=== PATIENT | female | born 1990 | race American Indian/Alaskan Native ===

== ENCOUNTER 2018-05-10 19:25 | Emergency (ER) | payer OTHER ==
--- NOTE | 2018-05-10 20:23 | EDM.PDOC ---
ED HPI GENERAL MEDICAL PROBLEM - General Chief Complaint: ENT Problem Stated Complaint: SORE THROAT [id number] Time Seen by Provider: 05/10/18 20:16 Source of Information: Reports: Patient History Limitations: Reports: No Limitations - History of Present Illness INITIAL COMMENTS - FREE TEXT/NARRATIVE: sorethraot one week, worse at night, tried OTC shea seltzer and throat lozenges , not helping, cough, non productive, left ear pain tonight Throat Pain Score (Numeric/FACES): 10 - Related Data Allergies Allergy/AdvReac Type Severity Reaction Status Date / Time No Known Allergies Allergy Verified 05/10/18 19:30 Home Meds: Home Meds . [No Known Home Meds] 05/10/18 [History] Past Medical History - Past Health History Medical/Surgical History: Denies Medical/Surgical History Social & Family History - Tobacco Use Smoking Status *Q: Never Smoker Second Hand Smoke Exposure: No - Recreational Drug Use Recreational Drug Use: No ED ROS ENT - Review of Systems Review Of Systems: ROS reveals no pertinent complaints other than HPI. ED EXAM, ENT - Physical Exam Exam: See Below Exam Limited By: No Limitations General Appearance: Alert, Mild Distress Eye Exam: Bilateral Eye: EOMI Ears: Normal External Exam, TM Fluid (bilaterally greater left) Nose: Normal Inspection Mouth/Throat: Pharyngeal Erythema (mild), Uvular Edema. No: Uvular Deviation Head: Atraumatic, Normocephalic Neck: No: Lymphadenopathy (L), Lymphadenopathy (R) Respiratory/Chest: No Respiratory Distress, Lungs Clear, Respiratory Distress Cardiovascular: Normal Peripheral Pulses, Regular Rate, Rhythm Extremities: Normal Inspection, Normal Range of Motion Neurological: Alert, Oriented, Normal Cognition Psychiatric: Normal Affect, Normal Mood Skin: Warm, Dry, Intact, Normal Color Course - Vital Signs Last Recorded V/S: Last Vital Signs Temp 98.8 F 05/10/18 19:27 Pulse 106 H 05/10/18 19:27 Resp 18 05/10/18 19:27 BP 121/79 05/10/18 19:27 Pulse Ox 97 05/10/18 19:27 - Orders/Labs/Meds Orders: Active Orders 24 hr Category Date Time Status CULTURE STREP A CONFIRMATION [RM] Stat Lab 05/10/18 19:32 Results STREP SCRN A RAPID W CULT CONF [RM] Stat Lab 05/10/18 19:32 Results Departure - Departure Time of Disposition: 20:24 Disposition: Home, Self-Care 01 Condition: Good Clinical Impression: Pharyngitis Qualifiers: Pharyngitis/tonsillitis etiology: unspecified etiology Qualified Code(s): J02.9 - Acute pharyngitis, unspecified - Discharge Information Instructions: Sore Throat, [id number] Forms: ED Department Discharge Additional Instructions: increase fluid chloraseptic throat sray alternate tylenol and ibuprofen for discomfort humidification follow up as needed - My Orders Last 24 Hours: My Active Orders 05/10/18 19:32 CULTURE STREP A CONFIRMATION [RM] Stat STREP SCRN A RAPID W CULT CONF [] Stat - Assessment/Plan Last 24 Hours: My Active Orders 05/10/18 19:32 CULTURE STREP A CONFIRMATION [RM] Stat STREP SCRN A RAPID W CULT CONF [] Stat
== END 2018-05-10 20:29 | disposition home or self-care (01) ==
LOC: DL.ED 19:25
DX: J02.9 Acute pharyngitis, unspecified (principal)
CPT/HCPCS: 87081; 87430; 99283

== ENCOUNTER 2020-11-13 23:21 | Inpatient (IN) | payer BC, OTHER ==
[2020-11-14 00:04] LABS: PTT,PARTIAL THROMBOPLSTIN TIME 23.3 SEC (22.0-34.0)
[2020-11-14 00:06] LABS: ANION GAP 17.5 mEq/L (7-13); CHLORIDE,CL 102 mmol/L (98-107); SODIUM,NA 138 mmol/L (136-145)
--- NOTE | 2020-11-14 00:48 | US ---
PROCEDURE INFORMATION: Exam: US After First Trimester, Transabdominal. Additional Gestation Exam date and time: 11/14/2020 12:21 AM Age: 30 years old Clinical indication: Lmp or gestational age (in weeks): 19 w 5 d; Other: Bleeding +1 days; ; Additional info: Bleeding during TECHNIQUE: Imaging protocol: Real-time transabdominal obstetrical ultrasound of the maternal pelvis and a second or third trimester with image documentation. Additional Gestation was evaluated. COMPARISON: No relevant prior studies available. FINDINGS: Gestation: Single live intrauterine gestation. heart rate: heart rate 150 bpm. presentation: Breech Placenta: Unremarkable. No subchorionic bleed. Placenta is location. Amniotic fluid index: The AISHWARYA = 3.96 cm. Cervix: Cervix is closed and 6 cm in length. IMPRESSION: Fetus in breech position with a heart rate of 150 bpm. AISHWARYA = 3.96 cm, consistent with oligohydramnios.
[2020-11-14] MEDS ORDERED: Lactated Ringers 1,000 ML IV SCH (01:30)
--- NOTE | 2020-11-14 01:36 | EDM.PDOC ---
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 She is G5, P4, SA1, L3; she follows with [facility] for care. The patient does attest to one episode of vaginal bleeding due to subchorionic bleed at approximately 4 weeks into this , but has not experienced vaginal bleeding since that time. She notes light bleeding began yesterday afternoon, however the bleeding has slowly progressed as she has saturated one pad in the past hour. She denies recent illness, fever, shaking chills, palpitations, nausea, vomiting, dysuria, di arrhea, constipation, abdominal cramping, low back pain, vaginal trauma, or rough intercourse. She denies tobacco, alcohol, or recreational drug use. 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 ED EXAM - Physical Exam Exam: See Below Exam Limited By: No Limitations General Appearance: Alert, No Apparent Distress Eye Exam: Bilateral Eye: EOMI, Normal Inspection, PERRL (3mm) Throat/Mouth: Normal Inspection, Normal Voice, No Airway Compromise Head: Atraumatic, Normocephalic Neck: Normal Inspection, Supple, Non-Tender, Full Range of Motion Respiratory/Chest: No Respiratory Distress, Lungs Clear, Normal Breath Sounds, No Accessory Muscle Use, Chest Non-Tender Cardiovascular: Normal Peripheral Pulses, Regular Rate, Rhythm, No Edema, No Gallop, No JVD, No Murmur, No Rub GI/Abdominal Exam: Soft, Non-Tender, No Distention, No Abnormal Bruit, No Mass, Pelvis Stable, Abnormal Bowel Sounds (Hypoactive bowel sounds) Rectal Exam: Normal Exam, Normal Rectal Tone (Female) Exam: Vaginal Bleeding (Vaginal vault full of blood upon insertion of speculum - cleared with cotton swabs and no active bleeding noted; No vaginal lesions or tears noted), Other (Cervix closed) Heart Tones: Present (Per US, 150 HR) Heart Tones per Min: 150 Movement: Active (Per US) Back Exam: Normal Inspection, Full Range of Motion, Other (No CVA tenderness) Extremities: Normal Inspection, Normal Range of Motion, Non-Tender, Normal Capillary Refill, No Pedal Edema Neurological: Alert, Oriented, CN II-XII Intact, Normal Cognition, Normal Gait, No Motor/Sensory Deficits Psychiatric: Normal Affect, Depressed Mood Skin Exam: Warm, Dry, Intact, Normal Color, No Rash Course - Vital Signs Last Recorded V/S: Last Vital Signs Temp 98.7 F 11/16/20 04:02 Pulse 104 H 11/16/20 04:02 Resp 16 11/16/20 04:02 BP 97/57 L 11/16/20 04:02 Pulse Ox 100 11/16/20 04:02 - Orders/Labs/Meds Labs: Laboratory Tests 11/13/20 11/13/20 11/13/20 Range/Units 01:02 23:39 23:39 WBC 13.5 H (5.0-10.0) 10^3/uL RBC 3.76 L (4.2-5.4) 10^6/uL Hgb 12.4 (12.0-16.0) g/dL Hct 35.8 L (37.0-47.0) % MCV 95.2 (80-100) fL MCH 33.0 (27.0-34.0) pg MCHC 34.6 (33.0-35.0) g/dL Plt Count 288 (150-450) 10^3/uL Neut % (Auto) 65.4 (42.2-75.2) % Lymph % (Auto) 24.4 (20.5-50.1) % [place] % (Auto) 9.3 H (2-8) % Eos % (Auto) 0.7 L (1.0-3.0) % Baso % (Auto) 0.2 (0.0-1.0) % PT 9.5 (9.0-12.0) SEC INR 0.9 (0.9-1.2) APTT 23.3 (22.0-34.0) SEC Sodium (136-145) mmol/L Potassium (3.5-5.1) mmol/L Chloride (98-107) mmol/L Carbon Dioxide (21-32) mmol/L Anion Gap (7-13) mEq/L BUN (7-18) mg/dL Creatinine (0.55-1.02) mg/dL Est Cr Clr Drug Dosing mL/min Estimated GFR (MDRD) BUN/Creatinine Ratio (No establ ref range) Glucose (70-99) mg/dL Lactic Acid (0.4-2.0) mmol/L Calcium (8.5-10.1) mg/dL Total Bilirubin (0.2-1.0) mg/dL AST (15-37) U/L ALT (14-59) U/L Alkaline Phosphatase (46-116) U/L Total Protein (6.4-8.2) g/dL Albumin (3.4-5.0) g/dL Globulin Albumin/Globulin Ratio HCG, Quant (0-6) mIU/mL Urine Color (YELLOW) Urine Appearance (CLEAR) Urine pH (5.0-9.0) Ur Specific [place] (1.005-1.030) Urine Protein (NEGATIVE) Urine Glucose (UA) (NEGATIVE) Urine Ketones (NEGATIVE) Urine Occult Blood (NEGATIVE) Urine Nitrite (NEGATIVE) Urine Bilirubin (NEGATIVE) Urine Urobilinogen (0.2-1.0) mg/dL Ur Leukocyte Esterase (NEGATIVE) Urine RBC /HPF Urine WBC (0-5/HPF) /HPF Ur Epithelial Cells (NOT SEEN) /HPF Urine Bacteria (0-FEW/HPF) /HPF Urine Mucus (NOT SEEN) /LPF Urine Opiates Screen Negative (NEGATIVE) Ur Oxycodone Screen Negative (NEGATIVE) Urine Methadone Screen Negative (NEGATIVE) Ur Barbiturates Screen Negative (NEGATIVE) U Tricyclic Antidepress Negative (NEGATIVE) Ur Phencyclidine Scrn Negative (NEGATIVE) Ur Amphetamine Screen Negative (NEGATIVE) U Methamphetamines Scrn Negative (NEGATIVE) Urine MDMA Screen Negative (NEGATIVE) U Benzodiazepines Scrn Negative (NEGATIVE) Urine Cocaine Screen Negative (NEGATIVE) U Marijuana (THC) Screen Negative (NEGATIVE) Ethyl Alcohol (0) mg/dL HIV-1 Antibody (NONREACTIVE) HIV-2 Antibody (NONREACTIVE) HIV P24 Antigen (NONREACTIVE) Blood Type (Referred) Blood Type Gel Antibody Screen Rhogam Indicated 11/13/20 11/13/20 11/13/20 Range/Units 23:39 23:39 23:39 WBC (5.0-10.0) 10^3/uL RBC (4.2-5.4) 10^6/uL Hgb (12.0-16.0) g/dL Hct (37.0-47.0) % MCV (80-100) fL MCH (27.0-34.0) pg MCHC (33.0-35.0) g/dL Plt Count (150-450) 10^3/uL Neut % (Auto) (42.2-75.2) % Lymph % (Auto) (20.5-50.1) % [place] % (Auto) (2-8) % Eos % (Auto) (1.0-3.0) % Baso % (Auto) (0.0-1.0) % PT (9.0-12.0) SEC INR (0.9-1.2) APTT (22.0-34.0) SEC Sodium 138 (136-145) mmol/L Potassium 3.5 (3.5-5.1) mmol/L Chloride 102 (98-107) mmol/L Carbon Dioxide 22 (21-32) mmol/L Anion Gap 17.5 H (7-13) mEq/L BUN 5 L (7-18) mg/dL Creatinine 0.58 (0.55-1.02) mg/dL Est Cr Clr Drug Dosing 124.70 mL/min Estimated GFR (MDRD) > 60 BUN/Creatinine Ratio 8.6 (No establ ref range) Glucose 73 (70-99) mg/dL Lactic Acid (0.4-2.0) mmol/L Calcium 8.8 (8.5-10.1) mg/dL Total Bilirubin 0.3 (0.2-1.0) mg/dL AST 7 L (15-37) U/L ALT 16 (14-59) U/L Alkaline Phosphatase 53 (46-116) U/L Total Protein 7.2 (6.4-8.2) g/dL Albumin 3.1 L (3.4-5.0) g/dL Globulin 4.1 Albumin/Globulin Ratio 0.76 HCG, Quant 67313 H (0-6) mIU/mL Urine Color (YELLOW) Urine Appearance (CLEAR) Urine pH (5.0-9.0) Ur Specific [place] (1.005-1.030) Urine Protein (NEGATIVE) Urine Glucose (UA) (NEGATIVE) Urine Ketones (NEGATIVE) Urine Occult Blood (NEGATIVE) Urine Nitrite (NEGATIVE) Urine Bilirubin (NEGATIVE) Urine Urobilinogen (0.2-1.0) mg/dL Ur Leukocyte Esterase (NEGATIVE) Urine RBC /HPF Urine WBC (0-5/HPF) /HPF Ur Epithelial Cells (NOT SEEN) /HPF Urine Bacteria (0-FEW/HPF) /HPF Urine Mucus (NOT SEEN) /LPF Urine Opiates Screen (NEGATIVE) Ur Oxycodone Screen (NEGATIVE) Urine Methadone Screen (NEGATIVE) Ur Barbiturates Screen (NEGATIVE) U Tricyclic Antidepress (NEGATIVE) Ur Phencyclidine Scrn (NEGATIVE) Ur Amphetamine Screen (NEGATIVE) U Methamphetamines Scrn (NEGATIVE) Urine MDMA Screen (NEGATIVE) U Benzodiazepines Scrn (NEGATIVE) Urine Cocaine Screen (NEGATIVE) U Marijuana (THC) Screen (NEGATIVE) Ethyl Alcohol < 3 (0) mg/dL HIV-1 Antibody (NONREACTIVE) HIV-2 Antibody (NONREACTIVE) HIV P24 Antigen (NONREACTIVE) Blood Type (Referred) Blood Type A NEGATIVE Gel Antibody Screen Negative Rhogam Indicated 11/13/20 11/13/20 11/13/20 Range/Units 23:39 23:39 23:39 WBC (5.0-10.0) 10^3/uL RBC (4.2-5.4) 10^6/uL Hgb (12.0-16.0) g/dL Hct (37.0-47.0) % MCV (80-100) fL MCH (27.0-34.0) pg MCHC (33.0-35.0) g/dL Plt Count (150-450) 10^3/uL Neut % (Auto) (42.2-75.2) % Lymph % (Auto) (20.5-50.1) % [place] % (Auto) (2-8) % Eos % (Auto) (1.0-3.0) % Baso % (Auto) (0.0-1.0) % PT (9.0-12.0) SEC INR (0.9-1.2) APTT (22.0-34.0) SEC Sodium (136-145) mmol/L Potassium (3.5-5.1) mmol/L Chloride (98-107) mmol/L Carbon Dioxide (21-32) mmol/L Anion Gap (7-13) mEq/L BUN (7-18) mg/dL Creatinine (0.55-1.02) mg/dL Est Cr Clr Drug Dosing mL/min Estimated GFR (MDRD) BUN/Creatinine Ratio (No establ ref range) Glucose (70-99) mg/dL Lactic Acid 0.7 (0.4-2.0) mmol/L Calcium (8.5-10.1) mg/dL Total Bilirubin (0.2-1.0) mg/dL AST (15-37) U/L ALT (14-59) U/L Alkaline Phosphatase (46-116) U/L Total Protein (6.4-8.2) g/dL Albumin (3.4-5.0) g/dL Globulin Albumin/Globulin Ratio HCG, Quant (0-6) mIU/mL Urine Color (YELLOW) Urine Appearance (CLEAR) Urine pH (5.0-9.0) Ur Specific [place] (1.005-1.030) Urine Protein (NEGATIVE) Urine Glucose (UA) (NEGATIVE) Urine Ketones (NEGATIVE) Urine Occult Blood (NEGATIVE) Urine Nitrite (NEGATIVE) Urine Bilirubin (NEGATIVE) Urine Urobilinogen (0.2-1.0) mg/dL Ur Leukocyte Esterase (NEGATIVE) Urine RBC /HPF Urine WBC (0-5/HPF) /HPF Ur Epithelial Cells (NOT SEEN) /HPF Urine Bacteria (0-FEW/HPF) /HPF Urine Mucus (NOT SEEN) /LPF Urine Opiates Screen (NEGATIVE) Ur Oxycodone Screen (NEGATIVE) Urine Methadone Screen (NEGATIVE) Ur Barbiturates Screen (NEGATIVE) U Tricyclic Antidepress (NEGATIVE) Ur Phencyclidine Scrn (NEGATIVE) Ur Amphetamine Screen (NEGATIVE) U Methamphetamines Scrn (NEGATIVE) Urine MDMA Screen (NEGATIVE) U Benzodiazepines Scrn (NEGATIVE) Urine Cocaine Screen (NEGATIVE) U Marijuana (THC) Screen (NEGATIVE) Ethyl Alcohol (0) mg/dL HIV-1 Antibody Non-reactive (NONREACTIVE) HIV-2 Antibody Non-reactive (NONREACTIVE) HIV P24 Antigen Non-reactive (NONREACTIVE) Blood Type (Referred) A neg Blood Type Gel Antibody Screen Rhogam Indicated Yes 11/14/20 Range/Units 01:02 WBC (5.0-10.0) 10^3/uL RBC (4.2-5.4) 10^6/uL Hgb (12.0-16.0) g/dL Hct (37.0-47.0) % MCV (80-100) fL MCH (27.0-34.0) pg MCHC (33.0-35.0) g/dL Plt Count (150-450) 10^3/uL Neut % (Auto) (42.2-75.2) % Lymph % (Auto) (20.5-50.1) % [place] % (Auto) (2-8) % Eos % (Auto) (1.0-3.0) % Baso % (Auto) (0.0-1.0) % PT (9.0-12.0) SEC INR (0.9-1.2) APTT (22.0-34.0) SEC Sodium (136-145) mmol/L Potassium (3.5-5.1) mmol/L Chloride (98-107) mmol/L Carbon Dioxide (21-32) mmol/L Anion Gap (7-13) mEq/L BUN (7-18) mg/dL Creatinine (0.55-1.02) mg/dL Est Cr Clr Drug Dosing mL/min Estimated GFR (MDRD) BUN/Creatinine Ratio (No establ ref range) Glucose (70-99) mg/dL Lactic Acid (0.4-2.0) mmol/L Calcium (8.5-10.1) mg/dL Total Bilirubin (0.2-1.0) mg/dL AST (15-37) U/L ALT (14-59) U/L Alkaline Phosphatase (46-116) U/L Total Protein (6.4-8.2) g/dL Albumin (3.4-5.0) g/dL Globulin Albumin/Globulin Ratio HCG, Quant (0-6) mIU/mL Urine Color Yellow (YELLOW) Urine Appearance Slightly cloudy (CLEAR) Urine pH 7.0 (5.0-9.0) Ur Specific [place] 1.015 (1.005-1.030) Urine Protein Negative (NEGATIVE) Urine Glucose (UA) Negative (NEGATIVE) Urine Ketones 15 H (NEGATIVE) Urine Occult Blood Moderate H (NEGATIVE) Urine Nitrite Negative (NEGATIVE) Urine Bilirubin Negative (NEGATIVE) Urine Urobilinogen 0.2 (0.2-1.0) mg/dL Ur Leukocyte Esterase Negative (NEGATIVE) Urine RBC 5-10 H /HPF Urine WBC 0-5 (0-5/HPF) /HPF Ur Epithelial Cells Few (NOT SEEN) /HPF Urine Bacteria Rare (0-FEW/HPF) /HPF Urine Mucus Few H (NOT SEEN) /LPF Urine Opiates Screen (NEGATIVE) Ur Oxycodone Screen (NEGATIVE) Urine Methadone Screen (NEGATIVE) Ur Barbiturates Screen (NEGATIVE) U Tricyclic Antidepress (NEGATIVE) Ur Phencyclidine Scrn (NEGATIVE) Ur Amphetamine Screen (NEGATIVE) U Methamphetamines Scrn (NEGATIVE) Urine MDMA Screen (NEGATIVE) U Benzodiazepines Scrn (NEGATIVE) Urine Cocaine Screen (NEGATIVE) U Marijuana (THC) Screen (NEGATIVE) Ethyl Alcohol (0) mg/dL HIV-1 Antibody (NONREACTIVE) HIV-2 Antibody (NONREACTIVE) HIV P24 Antigen (NONREACTIVE) Blood Type (Referred) Blood Type Gel Antibody Screen Rhogam Indicated Meds: Medications Discontinued Medications Generic Name Dose Route Start Last Admin Trade Name Freq PRN Reason Stop Dose Admin Acetaminophen 325 mg 11/14/20 12:40 Acetaminophen 325 Mg Tab PO Q6H PRN Headache Acetaminophen 650 mg 11/14/20 13:04 11/14/20 13:00 Acetaminophen 325 Mg Tab PO 650 mg Q6H PRN Administration Headache Lactated Ringer's 1,000 mls @ 125 mls/hr 11/14/20 01:30 11/14/20 01:45 Ringers, Lactated IV 125 mls/hr ASDIRECTED DREW Administration Ampicillin Sodium 2 gm/ Sodium 100 mls @ 200 mls/hr 11/14/20 09:30 11/14/20 10:59 Chloride IV Not Given Q6H DREW Azithromycin 500 mg/ Sodium 250 mls @ 250 mls/hr 11/14/20 10:00 11/14/20 10:32 Chloride IV 11/16/20 10:59 250 mls/hr Q24H DREW Administration Ampicillin Sodium 2 gm/ Sodium 100 mls @ 200 mls/hr 11/13/20 22:00 11/14/20 11:01 Chloride IV Not Given Q6H DREW Ampicillin Sodium 2 gm/ Sodium 100 mls @ 200 mls/hr 11/14/20 10:00 11/16/20 09:33 Chloride IV 200 mls/hr Q6H DREW Administration Azithromycin 500 mg/ Sodium 250 mls @ 250 mls/hr 11/14/20 09:00 11/16/20 08:27 Chloride IV 11/16/20 09:59 250 mls/hr Q24H DREW Administration Prenat Multivit/Kathryn/Iron/Folic Ac 1 each 11/15/20 08:00 11/16/20 08:27 Multivitamin With Calcium/Folic Acid/Iron Tab PO 1 each WITHBREAKFAST DREW Administration Sodium Chloride 10 ml 11/14/20 02:24 Sodium Chloride 0.9% 10 Ml Syringe FLUSH ASDIRECTED PRN Keep Vein Open - Re-Assessments/Exams Free Text/Narrative Re-Assessment/Exam: 11/14/20 US performed prior to speculum exam to r/o placenta or vasa previa. Hgb stable at 12.4, slight elevation in WBC at 13.5 with no left shift present. Maternal blood type pending. HCG quant pending. US revealed sandhu gestation with HR 150s; Low amniotic appreciated with score of 3.98. movement appreciated. Case discussed with Dr. Wright, STICK PULLER. In consultation with providers from [facility], Dr. Wright states he will accept patient for admission to this facility to monitor fetus and mother due to likely pre-term premature spontaneous rupture of membranes with threatened . Discussed findings of examination, lab work, and US with patient and . Discussed plan to admit patient to this facility for ongoing monitoring via OB. Patient verbalized understanding and agreement with the plan of care. Departure - Departure Time of Disposition: 01:26 Disposition: Admitted As Inpatient 68 Condition: Fair Clinical Impression: Threatened , Spontaneous rupture of amniotic membranes, Vaginal bleeding before 22 weeks gestation - Discharge Information Sepsis Event Note (ED) - Evaluation Sepsis Screening Result: No Definite Risk
[2020-11-14] MEDS ORDERED: Sodium Chloride 0.9% 10 ML Syringe FLUSH PRN (02:24)
[2020-11-14] MEDS ORDERED: Ampicillin 2 GM in Sodium Chloride 0.9% 100 ML IV SCH (09:30)
[2020-11-14] MEDS ORDERED: Azithromycin 500 MG in Sodium Chloride 0.9% 250 ML IV SCH (10:00)
[2020-11-14] MEDS: Ampicillin 2 GM in Sodium Chloride 0.9% 100 ML IV SCH ×5 (10:58→21:44)
[2020-11-14] MEDS: Azithromycin 500 MG in Sodium Chloride 0.9% 250 ML IV SCH ×2 (11:00→12:36)
--- NOTE | 2020-11-14 11:13 | HP ---
CHIEF COMPLAINT: "I am bleeding." HISTORY OF PRESENT ILLNESS: Ms. Nova is a 30-year-old, 4, para 2-1-0-3 female, last menstrual period unsure, EDC 04/05/2021 by early ultrasound, EGA 19 and 4/7 weeks gestation, who reported to the emergency department at [facility] in [facility] with complaints of bleeding. She stated this started on November 11 when she was going to an eye appointment in [place] when it increased, she decided to come in and be evaluated. She states she had bleeding early on in at approximately 6 weeks gestation when she had her first ultrasound and states she has had 3 appointments with Alia Lea at [facility]. She was supposed to have her 20 weeks ultrasound accomplished this coming week on 11/18/2020. She has not had any other issues in the . In the emergency department, they did a speculum examination, which revealed serosanguineous fluid coming out and an ultrasound was accomplished, which showed an AISHWARYA of 3.96, consistent with oligohydramnios and a heart rate of 150 beats per minute. She had not had any contractions. No nausea, vomiting, or diarrhea. No fever or chills. No hematochezia, hematemesis,. No dysuria, frequency, or urgency with urination. No leg pain, leg edema, back pain, or abdominal pain. We had her come to Labor and Delivery for admission and evaluation. I did talk with Dr. Tobin Reza, the perinatologist in [place], and he concurred with our plan of action and what to do with the patient with premature rupture of membranes before viability. We did do an AmniSure which was positive. She also had group B Strep, GC and chlamydia, and wet mount accomplished. I also have them do a urine culture. PAST MEDICAL HISTORY: Positive for depression and gastroesophageal reflux disease. No asthma, cancer, diabetes, seizure disorder, hypertension, heart disease, thyroid disorder, thromboembolic disease, breast lesions, or blood transfusions. FAMILY HISTORY: Positive for breast cancer, diabetes, hypertension, and heart disease. No defects, bleeding disorders, lung or kidney problems. SOCIAL HISTORY: She has a boyfriend who is involved and she lives with her children. She denies any tobacco use, alcohol use, or illicit drug use. They live in [place]. ALLERGIES: No known drug allergies. MEDICATIONS: vitamin. PAST SURGICAL HISTORY: None. GYNECOLOGICAL HISTORY: She had a Pap smear in August which was normal. She has never had any STIs. OBSTETRICAL HISTORY: 09/16/2009, she had a normal spontaneous vaginal delivery of a viable male , weighing 5 pounds 13 ounces at 38 and 3/7 weeks gestation. 12/24/2010, delivery of a viable male , weighing 5 pounds 15 ounces via normal spontaneous vaginal delivery at 36 and 1/7 weeks gestation. 04/13/2012, delivery of a viable female , weighing 5 pounds 6 ounces via normal spontaneous vaginal delivery at 37 and 4/7 weeks gestation. REVIEW OF SYSTEMS: All pertinent positive and negative review of systems per HPI. All other systems reviewed are negative. A 10-point review of systems discussed. She has no other issues than what is in the HPI. OBJECTIVE: General: Well-developed, well-nourished female, in no acute distress. Vital Signs: Stable, afebrile. HEENT: Unremarkable. Neck: Supple without adenopathy or thyromegaly. Lungs: Clear to auscultation. No wheezing, rhonchi, or rales noted. Cardiovascular: Regular rate and rhythm without murmurs. Abdomen: Soft, gravid, nontender. Fundal height just below the umbilicus. heart tones in the 140s to 150s. Back: No CVA tenderness. Cervix: By speculum was closed, thick, and high with some bloody serosanguineous fluid in the vaginal vault but no active bleeding noted. Extremities: No edema, erythema, or tenderness noted. LABORATORY DATA: WBC 15.5, hemoglobin 12.4, hematocrit 35.8, platelet count 288,000. PT 9.5, INR 0.9, PTT 23.3. Sodium 138, potassium 3.5, BUN 5, creatinine 0.58. AST 7, ALT 16. Urinalysis, moderate blood, leukocyte esterase negative, rare bacteria. AmniSure was positive. Urine toxicology screen was negative. SARS-COVID test was negative. Blood type A negative. Antibody screen negative. We did give her 300 mcg of Rhogam IM. Ultrasound; fetus is breech position. Heart rate 150 beats per minute. AISHWARYA 3.96, consistent with oligohydramnios. No signs of previa, abruption. Cervix is closed, 6 cm in length. ASSESSMENT: 1. 19 and 4/7 weeks intrauterine . 2. Vaginal bleeding. 3. premature prolonged rupture of membranes. 4. A negative blood type. 5. Breech presentation. PLAN: 1. Admit. 2. I had a long discussion with the patient and her significant other and discussion with her concerning antibiotics either now or when the fetus would be viable at approximately 22-23 weeks gestation. They chose to start antibiotics now, so we will give her ampicillin 2 g IV q.6 hours for 48 hours along with azithromycin 500 mg IV for 48 hours. 3. At that point, she wants to go on p.o.antibiotics, which we would give her amoxicillin 500 mg t.i.d. for 5 days along with erythromycin q.i.d. for 5 days. 4. We discussed the risk of going into labor, becoming infected, labor, risk of demise. 5. All questions were answered. 6. We also gave her the choice of going home and then being readmitted once the fetus is viable. They at this time would like to stay in, get the antibiotics, and then at this point, she will then be discharged to home and then be readmitted once viability would occur which would be between 22 and 23 weeks gestation. At that point, be admitted to the hospital, most likely in [place] at [place]. 7. I will talk with the providers here in [facility] and then once they take over, they will get a hold of a provider either [facility] in [place] or at [facility] in [place]. 8. I have talked with Dr. Tobin Reza, the perinatologist at [facility] in [place]. [facility] /[id number] SHEREEN
[2020-11-14] MEDS ORDERED: Acetaminophen 325 MG Tab PO PRN ×2 (12:40→13:04)
[2020-11-15] MEDS: Ampicillin 2 GM in Sodium Chloride 0.9% 100 ML IV SCH ×4 (04:00→22:10)
--- NOTE | 2020-11-15 04:09 | PCM.PN ---
- General Info Date of Service: 11/15/20 (Hospital Day # 2) Functional Status: Reports: Pain Controlled, Tolerating Diet, Ambulating, Urinating - Review of Systems General: Reports: No Symptoms HEENT: Reports: No Symptoms Pulmonary: Reports: No Symptoms Cardiovascular: Reports: No Symptoms Gastrointestinal: Reports: Other (Minimal leakage brown spotting) Genitourinary: Reports: No Symptoms Musculoskeletal: Reports: No Symptoms Skin: Reports: No Symptoms Neurological: Reports: No Symptoms Psychiatric: Reports: No Symptoms - Patient Data Vitals - Most Recent: Last Vital Signs Temp 99.1 F 11/14/20 22:00 Pulse 87 11/14/20 22:00 Resp 18 11/14/20 22:00 BP 112/67 11/14/20 22:00 Pulse Ox 99 11/14/20 22:00 Weight - Most Recent: 174 lb I&O - Last 24 Hours: Intake & Output 11/14/20 11/14/20 11/15/20 14:59 22:59 06:59 Intake Total 1250 200 Balance 1250 200 Lab Results Last 24 Hours: Laboratory Results - last 24 hr 11/13/20 11/13/20 11/14/20 Range/Units 23:39 23:39 09:00 Membrane Rupture Positive (NEG) HIV-1 Antibody Non-reactive (NONREACTIVE) HIV-2 Antibody Non-reactive (NONREACTIVE) HIV P24 Antigen Non-reactive (NONREACTIVE) Blood Type (Referred) A neg Rhogam Indicated Yes [place]o Results Last 24 Hours: Microbiology 11/14/20 08:30 Wet Prep - Final Vagina Med Orders - Current: Current Medications Acetaminophen (Acetaminophen 325 Mg Tab) 650 mg PO Q6H PRN PRN Reason: Headache Last Admin: 11/14/20 13:00 Dose: 650 mg Documented by: Lactated Ringer's (Ringers, Lactated) 1,000 mls @ 125 mls/hr IV ASDIRECTED DREW Last Admin: 11/14/20 01:45 Dose: 125 mls/hr Documented by: Ampicillin Sodium 2 gm/ Sodium (Chloride) 100 mls @ 200 mls/hr IV Q6H DREW Last Admin: 11/15/20 04:00 Dose: 200 mls/hr Documented by: Azithromycin 500 mg/ Sodium (Chloride) 250 mls @ 250 mls/hr IV Q24H DREW Stop: 11/16/20 09:59 Last Admin: 11/14/20 12:36 Dose: Not Given Documented by: Prenat Multivit/[place]/Iron/Folic Ac ( Multivitamin With Calcium/Folic Acid/Iron Tab) 1 each PO WITHBREAKFAST [facility] Sodium Chloride (Sodium Chloride 0.9% 10 Ml Syringe) 10 ml FLUSH ASDIRECTED PRN PRN Reason: Keep Vein Open Discontinued Medications Acetaminophen (Acetaminophen 325 Mg Tab) 325 mg PO Q6H PRN PRN Reason: Headache Ampicillin Sodium 2 gm/ Sodium (Chloride) 100 mls @ 200 mls/hr IV Q6H [facility] Last Admin: 11/14/20 10:59 Dose: Not Given Documented by: Azithromycin 500 mg/ Sodium (Chloride) 250 mls @ 250 mls/hr IV Q24H [facility] Stop: 11/16/20 10:59 Last Admin: 11/14/20 10:32 Dose: 250 mls/hr Documented by: Ampicillin Sodium 2 gm/ Sodium (Chloride) 100 mls @ 200 mls/hr IV Q6H [facility] Last Admin: 11/14/20 11:01 Dose: Not Given Documented by: - Exam General: Alert, Oriented, Cooperative, No Acute Distress HEENT: Pupils Equal, Pupils Reactive, EOMI Neck: Supple Lungs: Clear to Auscultation, Normal Respiratory Effort Cardiovascular: Regular Rate, Regular Rhythm GI/Abdominal Exam: Normal Bowel Sounds, Soft, Non-Tender, No Distention (Female) Exam: Vaginal Discharge (Minimal brown spotting on chucks) Extremities: Normal Inspection, Normal Range of Motion, Non-Tender, No Pedal Edema Skin: Warm, Dry Neurological: No New Focal Deficit, Normal Speech, Normal Tone Psy/Mental Status: Alert, Normal Affect, Normal Mood - Patient Data Lab Results Last 24 hrs: Laboratory Results - last 24 hr 11/13/20 11/13/20 11/14/20 Range/Units 23:39 23:39 09:00 Membrane Rupture Positive (NEG) HIV-1 Antibody Non-reactive (NONREACTIVE) HIV-2 Antibody Non-reactive (NONREACTIVE) HIV P24 Antigen Non-reactive (NONREACTIVE) Blood Type (Referred) A neg Rhogam Indicated Yes Result Diagrams: 11/13/20 23:39 11/13/20 23:39 Ch[place]o Results Last 24 hrs: Microbiology 11/14/20 08:30 Wet Prep - Final Vagina Sepsis Event Note - Evaluation Sepsis Screening Result: No Definite Risk - Focused Exam Vital Signs: Vital Signs Temp Pulse Resp BP Pulse Ox 11/14/20 22:00 99.1 F 87 18 112/67 99 11/14/20 20:00 98.8 F 94 18 102/67 97 - Problem List Review Problem List Initiated/Reviewed/Updated: Yes - My Orders Last 24 Hours: My Active Orders 11/14/20 Breakfast Regular Diet [DIET] 11/14/20 09:00 Azithromycin [Zithromax] 500 mg Sodium Chloride 0.9% [Normal Saline (AdvBag)] 250 ml IV Q24H 11/14/20 09:05 CULTURE GROUP B STREP [RM] Routine 11/14/20 10:00 Ampicillin 2 gm Sodium Chloride 0.9% [Normal Saline] 100 ml IV Q6H 11/14/20 10:13 Hepatitis B Surface Antigen Screen [HBSAG SCREEN] [REF] Routine RPR (SYPHILIS SERO) W/ RFLX [REF] Routine 11/14/20 10:44 Heart Tones [RC] 08,20 11/14/20 13:04 Acetaminophen [TylenoL] 650 mg PO Q6H PRN 11/14/20 16:01 Antiembolic Devices [RC] 08,20 SCD [Sequential Compression Device] [OM.PC] Routine 11/14/20 23:39 HEP C VIRUS AB [REF] Routine 11/15/20 08:00 Vit with Ca/FA/Iron [ Plus Iron] 1 each PO WITHBREAKFAST - Assessment Assessment:: Hospital Day # 2 S/P Premature prolonged rupture of membranes. Oligohydraminos Afebrile No contractions - Plan Plan:: Continue antibiotics until tomorrow morning. Discharge to home tomorrow Follow-up and continued care with Dr. Rincon. Will start Amoxicillin po 500 mg TID X 5 days and Erythromycin po 250 mg QiD x 5 days Will be admitted if still between 22 - 23 weeks gestation at [facility] or [facility]. All questions answered.
[2020-11-15] MEDS: Azithromycin 500 MG in Sodium Chloride 0.9% 250 ML IV SCH (09:22)
[2020-11-15] MEDS: Prenatal Multivitamin with Calcium/Folic Acid/Iron Tab PO SCH (09:23)
--- NOTE | 2020-11-15 13:33 | PN ---
DATE: 11/15/2020 SUBJECTIVE: The patient notes her bleeding is stable. She denies any cramping, fever, chills, or sweats. She is tolerating p.o. OBJECTIVE: Vital Signs: Temperature 98.4, heart rate 97, blood pressure 106/68, respiratory rate 18. Lungs: Clear to auscultation bilaterally. No increased work of breathing. Heart: S1, S2. Regular rate and rhythm. Abdomen: Gravid, nontender, nondistended. Extremities: No peripheral edema. LABORATORY DATA: Have been returning for no OB labs. Her HIV is negative. Her COVID has been negative. Her urine drug screen has been negative. Her AmniSure was positive. Her quant was 11,212. CBC 2 days ago, white cell 13.5, hemoglobin 12.4, platelets 288. ASSESSMENT AND PLAN: Pre-term pre-labor rupture of membranes, now at approximately 19 and 5/7 weeks, with spotting and bleeding/threatened miscarriage. At this point in time, the patient has been stable. We have been doing Doptones on baby's heartbeat and have been able to hear them every shift. We will continue to follow monitor closely Dr. Wright to discuss this case with me as well as with Maternal- Medicine. Plan is to send her home tomorrow after she has completed 48 hours of antibiotics, and then followed with 5 days of oral antibiotics, follow for signs and symptoms of miscarriage, sepsis, demise, and then after approximately 20 to 23 weeks may need to consider admission to higher level of care, and was discussed choosing [place] or [place]. The patient understands and agrees to the above treatment plan. She also understands her prognosis and potential issues that could occur. I will continue to follow closely at this point in time. [facility] /[id number]
[2020-11-16] MEDS: Ampicillin 2 GM in Sodium Chloride 0.9% 100 ML IV SCH ×2 (04:01→09:33)
[2020-11-16] MEDS: Prenatal Multivitamin with Calcium/Folic Acid/Iron Tab PO SCH (08:27)
[2020-11-16] MEDS: Azithromycin 500 MG in Sodium Chloride 0.9% 250 ML IV SCH (08:27)
--- NOTE | 2020-11-16 11:37 | DISCH ---
ADMIT DIAGNOSES: 1. Intrauterine at 19-4/7 weeks by early ultrasound with EDC of 04/05/2021. 2. Pre-labor, pre-term prolonged rupture of membranes. 3. Vaginal bleeding. 4. A negative blood type. 5. Breech presentation. DISCHARGE DIAGNOSES: 1. Intrauterine at 19-4/7 weeks by early ultrasound with EDC of 04/05/2021. 2. Pre-labor, pre-term prolonged rupture of membranes. 3. Vaginal bleeding. 4. A negative blood type. 5. Breech presentation. 6. 48 hours IV antibiotics given. 7. Latency antibiotics for 5 days to be given in the form of amoxicillin 500 mg t.i.d. and erythromycin 250 mg q.i.d., both for 5 days. HISTORY OF PRESENT ILLNESS: Please see H and P done by Dr. Wright. The patient noted bleeding and then subsequently had evaluation with a positive AmniSure and an ultrasound which revealed an AISHWARYA of 3.96, consistent with oligohydramnios with heart rate of 150 beats per minute. Consult was made to Dr. Tobin Reza, perinatologist in [place] in terms of management of this patient and shared decision was made to proceed with 48 hours of IV antibiotics, followed by 5 days antibiotics noted as above, and considering admission to a higher level hospital around 22 to 23 weeks gestation once viability would occur. Discussion ensued with the patient and she understood and agreed and wished to proceed with the above treatment. I did discuss the risk of going into labor, becoming infected, labor, risk of demise. 11/15/2020, the patient was evaluated, was doing well. Labs had returned and heart tones were detected. On the date of discharge, the patient was tolerating p.o., urinating, passing flatus, described some mild bleeding, nothing increasing in terms of vaginal bleeding, no cramping listed. heart tones have been Doptone'd this morning and within normal limits. Labs were done. White cell count 13.5, hemoglobin 12.4, platelets 288. PT/INR was 0.9, PTT normal at 23.3. CMP remarkable for anion gap 17.5, BUN low at 5, AST low at 7, albumin low at 3.1. Quant hCG was 11,212. Urinalysis; 15 ketones, moderate blood, 5 to 10 red cells per high-powered field, few mucus, positive AmniSure, negative urine drug screen. HIV and COVID were negative, and group B strep was also done and this was negative as well as a urine culture negative, with a wet prep completely within normal limits as well. PHYSICAL EXAMINATION: Vital Signs: Last set of vitals, temp 97, heart rate 104, blood pressure 97/57, respiratory rate 16. Lungs: Clear to auscultation bilaterally. Heart: S1, S2. Regular rate and rhythm. Abdomen: Fundal height around -1 below the umbilicus. Extremities: No peripheral edema. No calf pain. CONDITION ON DISCHARGE COMPARED TO CONDITION ON ADMISSION: Guarded. DISCHARGE INSTRUCTIONS: We will put her on modified bedrest to stay home and not send her to work as she has had some mild bleeding and pre-term, pre-labor rupture of membranes with previable . DISCHARGE MEDICATIONS: 1. vitamins. 2. Amoxicillin 500 mg t.i.d. x5 days. 3. Erythromycin 250 mg q.i.d. x5 days. FOLLOWUP: The patient has appointment on 11/18/2020 at [facility] where her primary care provider is. Did discuss with the patient discussing her case with her primary care provider, if there are any questions they are to call. Plan would be to continue with Doptone, evaluating baby and watching for any signs and symptoms of sepsis, demise, labor, and return to the ER if any of these occur as well as with increased bleeding. The patient understood and agreed, and wished to proceed with discharge and following up at [facility]. I did discuss with her potentially needing referral to higher level of care such as [place] or [place] when she is around 22 to 23 weeks and consider viable at that time for potential admission to hospital and serial evaluations and management. The patient understood and her male partner understood and agreed with the above. Please see Dr. Wright notes as well in terms of discussions with perinatologist. The plan today is to proceed with discharge after 48 hours antibiotics, send her home with antibiotics as above and follow for any signs and symptoms of concern as noted above. Also, if she has any other concerns she is to present to the ER; significant pain, bleeding, leaking increase, contractions, or other concerns. Over half hour was spent in discharge evaluation and management of this patient. [facility] /[id number]
[2020-11-16 12:46] LABS: C.TRACHOMATIS BY TMA Negative (Negative); N.GONORRHOEAE BY TMA Negative (Negative)
== END 2020-11-16 10:07 | disposition home or self-care (01) | DRG 566 ==
LOC: DL.ED 23:21 → DL.OB 11-14 01:23 → DL.ED 11-14 01:39 → DL.MS 11-14 09:34
PROVIDERS: ADMIT Obstetrics & Gynecology; ATTEND Obstetrics & Gynecology
DX: O42.912 Preterm premature rupture of membranes, unspecified as to length of time between rupture and onset of labor, second trimester (principal); Z3A.19 19 weeks gestation of pregnancy; O32.1XX0 Maternal care for breech presentation, not applicable or unspecified; Z20.822 Contact with and (suspected) exposure to COVID-19
CPT/HCPCS: 36415; 36430; 76810; 76815; 80053; 80305-QW; 80307; 81001; 83605; 84112; 84702; 85025; 85610; 85730; 86592; 86803; 86850; 86900; 86901; 87081; 87086; 87210; 87340; 87389; 87491; 87591; 99284; 99285-25; A9270-GY; J0290; J0456; J2790; J7050; J7120; U0002